=== PATIENT | female | born 1955 | race Caucasian/White ===

== ENCOUNTER 2018-05-20 03:23 | Emergency (ER) | payer BC, OTHER ==
[~2018-05-20] VITALS: Ht 152.4 cm; Wt 53.2 kg
[2018-05-20] MEDS ORDERED: LISI-167 PO (03:46)
[2018-05-20] MEDS ORDERED: HYDR1POW19 PO (03:46)
[2018-05-20] MEDS ORDERED: SIMV10TA3 PO (03:46)
[2018-05-20 04:00] LABS: BASOPHILS # (AUTO) 0.03 x10^3/uL (0-0.1); BASOPHILS % (AUTO) 0 % (0-1); EOSINOPHILS # (AUTO) 0.34 x10^3/uL (0-0.4); EOSINOPHILS % (AUTO) 5 % (1-7); LYMPHOCYTES # (AUTO) 1.95 x10^3/uL (1-3.4); LYMPHOCYTES % (AUTO) 27 % (22-44); MD NO; MEAN CORPUSCULAR HEMOGLOBIN 33.2 pg (27.0-34.8); MEAN CORPUSCULAR HGB CONC 34.8 g/dL (32.4-35.8); MEAN CORPUSCULAR VOLUME 95.4 fL (80-100); MEAN PLATELET VOLUME 7.4 fL (7.4-10.4); MONOCYTES # (AUTO) 0.56 x10^3/uL (0.2-0.8); MONOCYTES % (AUTO) 8 % (2-9); NEUTROPHILS # (AUTO) 4.23 x10^3/uL (1.8-6.8); NEUTROPHILS % (AUTO) 60 % (42-75); PLATELET COUNT 257 x10^3/uL (130-400); RED BLOOD COUNT 4.77 x10^6/uL (3.82-5.3); RED CELL DISTRIBUTION WIDTH 12.6 % (9.6-15.2)
[2018-05-20] MEDS ORDERED: KETOROLAC 30 MG/1 ML IVPush ONE (04:00)
[2018-05-20] MEDS ORDERED: ONDANSETRON 2MG/ML, 2ML IVPush ONE (04:00)
[2018-05-20 04:12] LABS: ALANINE AMINOTRANSFERASE 29 U/L (12-78); ALBUMIN 4.1 g/dL (3.4-5.0); ANION GAP 8 mmol/L (5-15); CHLORIDE 108 mmol/L (98-107); CREATININE 0.86 mg/dL (0.55-1.02)
[2018-05-20 04:13] LABS: CULTURE INDICATED? YES; MICROSCOPIC INDICATED
[2018-05-20 04:14] LABS: ALKALINE PHOSPHATASE 71 U/L (45-117); BILIRUBIN,TOTAL 0.4 mg/dL (0.2-1.0); TOTAL PROTEIN 7.3 g/dL (6.4-8.2)
[2018-05-20] MEDS ORDERED: OMNIPAQUE 350 MG/ML, 100ML BOTTLE ONE (04:34)
[2018-05-20 04:53] VITALS: BP 110/56
== END 2018-05-20 05:25 | disposition other institution (70) ==
LOC: ED 05:00
DX: N94.89 Other specified conditions associated with female genital organs and menstrual cycle (principal); F17.200 Nicotine dependence, unspecified, uncomplicated; Z88.1 Allergy status to other antibiotic agents
CPT/HCPCS: 36415; 74177; 80053; 81001; 83690; 85025; 87086; 99285; Q9967

== ENCOUNTER 2019-02-16 13:21 | Emergency (ER) | payer BC ==
[~2019-02-16] VITALS: Ht 152.4 cm; Wt 52.0 kg
[~2019-02-16 13:21] MED LIST: HYDR1POW19 PO; LISI-167 PO; SIMV10TA3 PO
[2019-02-16 13:48] VITALS: BP 128/77
== END 2019-02-16 14:32 | disposition home or self-care (01) ==
LOC: ED 14:19
DX: L30.9 Dermatitis, unspecified (principal)
CPT/HCPCS: 99283